=== PATIENT | male | born 1945 | race Caucasian/White ===

== ENCOUNTER 2023-01-31 11:56 | Emergency (ER) | payer OTHER ==
[~2023-01-31] VITALS: Ht 167.6 cm; Wt 84.1 kg
[2023-01-31 12:01] VITALS: TEMP 98.1
[2023-01-31 12:18] LABS: COVID AG,FIA SOURCE NASAL SWAB
[2023-01-31 12:49] LABS: SARS-COV2 (COVID) ANTIGEN,FIA Negative (Negative)
[2023-01-31 12:52] LABS: INFLUENZA TYPE A NEGATIVE FOR TYPE A (NEGATIVE); INFLUENZA TYPE B NEGATIVE FOR TYPE B (NEGATIVE)
[2023-01-31] MEDS ORDERED: BENZ-227 PO (14:47)
[2023-01-31 15:08] VITALS: BP 150/76; PULSE 90; RESP 16
== END 2023-01-31 14:58 | disposition home or self-care (01) ==
LOC: EMS 11:59
DX: J40 Bronchitis, not specified as acute or chronic (principal); I11.9 Hypertensive heart disease without heart failure; Z20.822 Contact with and (suspected) exposure to COVID-19
CPT/HCPCS: 71045; 87804; 99284

== ENCOUNTER 2023-05-09 09:07 | Emergency (ER) | payer OTHER ==
[~2023-05-09] VITALS: Ht 170.2 cm; Wt 81.8 kg
[~2023-05-09 09:07] MED LIST: BENZ-227 PO
[2023-05-09 09:09] VITALS: BP 150/84; PULSE 56; RESP 18; TEMP 97.8
[2023-05-09] MEDS ORDERED: LOSA-382 PO (09:15)
[2023-05-09] MEDS ORDERED: GLUC-29 PO (09:15)
[2023-05-09] MEDS ORDERED: DOXA2TAB86 PO (09:15)
[2023-05-09] MEDS ORDERED: CARV6 PO (09:15)
[2023-05-09] MEDS ORDERED: MAGN64TA14 PO (09:15)
[2023-05-09] MEDS ORDERED: CHOL500043 PO (09:15)
[2023-05-09] MEDS ORDERED: IBUP-45 PO (09:15)
[2023-05-09] MEDS ORDERED: FURO-152 PO (09:20)
[2023-05-09] MEDS ORDERED: LIDO700A15 TP (11:39)
[2023-05-09] MEDS ORDERED: METH-812 PO (11:39)
[2023-05-09] MEDS: KETOROLAC TROMETHAMINE 30 MG/ML VIAL IM ONE (11:59)
== END 2023-05-09 13:54 | disposition home or self-care (01) ==
LOC: EMS 09:22
DX: M54.6 Pain in thoracic spine (principal); I11.9 Hypertensive heart disease without heart failure
CPT/HCPCS: 99283; 96372; J1885